=== PATIENT | female | born 1995 | race Caucasian/White ===

== ENCOUNTER 2025-06-16 20:17 | Emergency (ER) | payer MEDICAID ==
[~2025-06-16] VITALS: Ht 172.7 cm; Wt 68.0 kg
[2025-06-16] MEDS ORDERED: ONDANSETRON HCL/PF 4 MG/2 ML VIAL ONE (20:47)
[2025-06-16] MEDS: ONDANSETRON HCL/PF 4 MG/2 ML VIAL IVP ONE (20:58)
[2025-06-16] MEDS: IV NS 0.9% 1,000 ML BAG IV ONE (20:58)
[2025-06-16 21:07] LABS: PLATELET COUNT (AUTO) 258 K/uL (150-450); RED BLOOD CELL COUNT(AUTO) 4.85 MIL/uL (4.0-5.2); RED CELL DISTRIBUTION WIDTH 12.8 % (11.5-15.0); WHITE BLOOD COUNT (AUTO) 12.1 K/uL (4.3-11.0)
[2025-06-16 21:21] LABS: ASPARTATE AMINOTRANSFERASE 47.0 U/L (15-37); CALCIUM, SERUM 8.8 mg/dL (8.5-10.1); CREATININE 0.5 mg/dL (0.6-1.3); SODIUM SERUM 135.0 mmol/L (136-145); TOTAL PROTEIN, SERUM 8.0 g/dL (6.4-8.2); UREA NITROGEN, BLOOD 11.0 mg/dL (7-18)
[2025-06-16] MEDS: POTASSIUM CHLORIDE 20 MEQ TAB.PRT.SR PO ONE (21:40)
[2025-06-16] MEDS ORDERED: POTASSIUM CHLORIDE 20 MEQ TAB.PRT.SR PO ONE (21:40)
[2025-06-16] MEDS ORDERED: DOXY1TAB4 PO (22:04)
[2025-06-16] MEDS ORDERED: SODI1POW39 PO (22:04)
[2025-06-16] MEDS ORDERED: ONDA4TAB11 PO (22:04)
[2025-06-16 22:17] LABS: APPEARANCE,URINE CLEAR (CLEAR); BLOOD, URINE 2+ Ery/uL (NEGATIVE); LEUKOCYTE ESTERASE ,URINE TRACE (NEGATIVE); NITRITE, URINE NEGATIVE (NEGATIVE); UGLUCOSE NEGATIVE (NEGATIVE)
[2025-06-16 22:40] LABS: ADD URINE CULTURE YES
[2025-06-16] MEDS ORDERED: NITR100C6 PO (22:49)
[2025-06-16 23:00] VITALS: BP 112/57; TEMP 97.4; O2SAT 97
== END 2025-06-16 23:04 | disposition home or self-care (01) ==
LOC: ER 20:33
DX: O21.0 Mild hyperemesis gravidarum (principal); Z3A.09 9 weeks gestation of pregnancy; R10.20 Pelvic and perineal pain unspecified side; Z91.048 Other nonmedicinal substance allergy status
CPT/HCPCS: 99283; 96374; 96361; 85025; 80048; 87086; 83690; 80076; 81001; 36415; 84702; J2405; J7030